=== PATIENT | male | born 1980 | race Caucasian/White ===

== ENCOUNTER 2016-12-26 18:37 | Emergency (ER) | payer MEDICAID ==
[~2016-12-26] VITALS: Ht 167.6 cm; Wt 78.0 kg
[2016-12-26 18:39] VITALS: Ht 167.6 cm; Wt 78.0 kg
[2016-12-26] MEDS ORDERED: POLY10DR19 LEFT EYE (21:24)
--- NOTE | 2016-12-26 22:44 | ERD ---
ER Documentation Chief Complaint Date/Time DATE: 12/26/16 TIME: 22:40 Chief Complaint Swelling to R eye for 1 week HPI This is a 36-year-old male that presents to the ER with a bump to his lower right eyelid which occurred a week ago. Patient states that he noticed a white spot in the inner eyelid and that the bump bothers him. He denies any eye pain. Patient denies any eye redness, vision loss or vision changes. Denies any headaches. States that he had a little bit of discharge in the morning, however there has not been discharge other than that occasion and he does not have any discharge right now. he denies any fevers or chills. ROS 12 point review of systems was done, all negative except per HPI. Medications Home Meds Active Scripts Polymyxin B Sulfate-TMP* (Polymyxin B-TMP Eye Drops*) 10 Ml Drops, 1 DROP LEFT EYE QID for 7 Days, EA Prov:KATY HOBSON 12/26/16 Allergies Allergies: Coded Allergies: No Known Drug Allergy (Verified Allergy, Unknown, 11/05/07) PMhx/Soc History of Surgery: No Anesthesia Reaction: No Hx Neurological Disorder: No Hx Respiratory Disorders: No Hx Cardiac Disorders: No Hx Psychiatric Problems: No Hx Miscellaneous Medical Probl: No Hx Alcohol Use: No Hx Substance Use: No Hx Tobacco Use: No Smoking Status: Never smoker Physical Exam Vitals Vital Signs Date Time Temp Pulse Resp B/P Pulse Ox O2 Delivery O2 Flow Rate FiO2 12/26/16 18:39 98.2 80 18 137/73 98 Physical Exam GENERAL: The patient is well developed and appropriate for usual state of health , in no apparent distress. HEENT: Atraumatic. Conjunctivae are pink. Pupils equal, round, and reactive to light. non painful EOM's. patient has a chalazion to the lower right eyelid. no discharge is seen. CHEST: Clear to auscultation bilaterally. There are no rales, wheezes or rhonchi. HEART: Regular rate and rhythm. No murmurs, clicks, rubs or gallops. NEURO: Alert and oriented. Procedures/MDM This is a 28-year-old male presents here with a bump to his lower right eyelid. Patient does have a chalazion. Patient was advised to try warm compresses. He did state he had some discharge earlier this morning, suspicion for infectious etiology is low. Patient however will be sent home with Polytrim. Patient does not have a red eye or eye pain suspicion for acute angle-closure glaucoma, retinal detachment, foreign body, retrobulbar hematoma low. Patient needs to follow-up with his primary care doctor within 1-2 days or return to ER sooner if symptoms worsen. My medical decision making sure that the patient he understands and agrees with plan. Departure Diagnosis: Primary Impression: Chalazion Condition: Stable Patient Instructions: Chalazion Referrals: [facility] Hours: Mon - Fri 9:00 AM - 5:00 PM Additional Instructions: Llame al doctor MAANA y joycelyn neelam NATALY PARA DENTRO DE 1-2 LEVINE.Dgale a la secretaria que nosotros le instruimos hacer esta nataly.Avise o llame si seth condicin se empeora antes de la nataly. Regresa aqui si peor o no mejor. SI NO SE TE MEJORA TIENES QUE IR CON UN OPTAMALOGO! KATY HOBSON Dec 26, 2016 22:44
== END 2016-12-26 21:38 | disposition home or self-care (01) ==
LOC: FTE 18:37
DX: H00.12 Chalazion right lower eyelid (principal)
CPT/HCPCS: 99283